=== PATIENT | female | born 1930 | race Caucasian/White ===

== ENCOUNTER 2016-05-19 06:13 | Inpatient (IN) | payer OTHER ==
[2016-05-15 11:03] LABS: Basophils # (auto) 0 uL; Basophils % (auto) 0.3 % (0.0-2.0); Eosinophils # (auto) 0.1 uL; Eosinophils % (auto) 1.1 % (0.0-7.0); Hematocrit 39.5 % (36.0-46.0); Lymphocytes # (auto) 2.2 uL; Lymphocytes % (auto) 18.3 % (10.0-50.0); Mean Corpuscular Hemoglobin 32.3 pg (28.0-32.0); Mean Corpuscular Hgb Conc. 32.9 g/dL (32.0-36.0); Mean Corpuscular Volume 98.2 fL (80.0-100.0); Mean Platelet Volume 7.1 fL (7.4-10.4); Monocytes # (auto) 0.9 uL; Monocytes % (auto) 7.7 % (0.0-12.0); Neutrophils # (auto) 8.7 uL; Neutrophils % (auto) 72.6 % (37.0-80.0); Platelet Count (auto) 383 10^3/uL (140-450)
[2016-05-15 11:07] LABS: Urine Bilirubin Negative (Negative); Urine Blood Negative /uL (Negative); Urine Color Yellow (Yellow); Urine Glucose Normal (Normal); Urine Hyaline Cast FEW /lpf (0 - 2); Urine Ketone Negative (Negative); Urine Mucus FEW (None Seen); Urine Nitrite Negative (Negative); Urine RBC <1 /hpf (0 - 4); Urine Squamous Epithelial Cell FEW /hpf (<5); Urine Urobilinogen Normal (Negative); Urine pH 5.5 (5.0-8.0)
[2016-05-15 11:22] LABS: INR 0.98 (0.9-1.15); Partial Thromboplastin Time 26.2 sec (22.64-33.71); Prothrombin Time 10.1 sec (9.37-12.3)
[2016-05-15 11:40] LABS: Albumin 4.1 g/dL (3.4-5.0); BUN/Creatinine Ratio 30.4; Bilirubin, Total 0.3 mg/dL (0.2-1.0); Calcium 9.7 mg/dL (8.5-10.1); Potassium 4.4 mmol/L (3.5-5.1); Total Protein 8.1 g/dL (6.4-8.2)
[~2016-05-19] VITALS: Ht 170.2 cm; Wt 92.8 kg
[~2016-05-19 06:13] MED LIST: ACET-1156 PO; AML5T PO; ASCO500T11 OR; ASPI81TA27 PO; B-COTAB59 OR; CALC600T4 PO; CHOL10006 PO; CRAN1TAB2 PO; FLAX1300 OR; GINK120C3 PO; GLUCTAB OR; LACTCAP35 OR; LEV50T PO; MELO-85 PO; MULT1TAB69 PO; OMEG100078 PO; OMEP20CA5 PO; OXYB15TA12 PO; POTATAB17 PO; SERT-160 PO; TRAM50TA2 PO
[2016-05-19] MEDS ORDERED: TETRACAINE 1% INJ 2 ML VIAL IJ ONE (06:40)
[2016-05-19] MEDS ORDERED: fentaNYL CITRATE 100 MCG/2 ML VL ONE ×2 (06:47→09:02)
[2016-05-19] MEDS ORDERED: MORPHINE SULF(PF) 0.5MG/ML 10ML VIAL ONE (06:47)
[2016-05-19] MEDS ORDERED: MIDAZOLAM HCL 1MG/1ML-2 ML VIAL ONE (06:47)
[2016-05-19] MEDS ORDERED: SODIUM CHLORIDE LOCK 20 ML ONE (06:49)
[2016-05-19] MEDS ORDERED: ePHEDrine SULFATE 50 MG/ML AMP ONE (06:49)
[2016-05-19] MEDS ORDERED: ONDANSETRON HCL 4 MG/2 ML VIAL ONE (06:49)
[2016-05-19] MEDS ORDERED: PROPOFOL 10 MG/ML 20 ML IV ONE ×2 (06:49→09:51)
[2016-05-19] MEDS ORDERED: BUPIVACAINE W/ EPINEPH 0.25% INJ 50ML MDV ONE (06:56)
[2016-05-19] MEDS ORDERED: BUPIVACAINE 0.25% INJ 50ML VIAL ONE (06:56)
[2016-05-19] MEDS ORDERED: cefTRIAXone SOD 1,000 MG VL ONE (06:58)
[2016-05-19] MEDS ORDERED: ceFAZolin 1GM/50ML D5W 100 ML IV ONE (07:07)
[2016-05-19 07:37] LABS: Basophils # (auto) 0 uL; Basophils % (auto) 0.2 % (0.0-2.0); Eosinophils # (auto) 0.1 uL; Eosinophils % (auto) 1.3 % (0.0-7.0); Hematocrit 37.9 % (36.0-46.0); Lymphocytes # (auto) 1.7 uL; Lymphocytes % (auto) 15.6 % (10.0-50.0); Mean Corpuscular Hemoglobin 31.2 pg (28.0-32.0); Mean Corpuscular Hgb Conc. 31.6 g/dL (32.0-36.0); Mean Corpuscular Volume 98.6 fL (80.0-100.0); Mean Platelet Volume 6.8 fL (7.4-10.4); Monocytes # (auto) 0.9 uL; Monocytes % (auto) 7.9 % (0.0-12.0); Neutrophils # (auto) 8.2 uL; Platelet Count (auto) 347 10^3/uL (140-450); Red Cell Distribution Width 13.1 % (11.6-16.0); White Blood Cell 10.9 10^3/uL (4.4-10.8)
[2016-05-19] MEDS ORDERED: SUCCINYLCHOLINE CHLORIDE 20 MG/ML 10ML VIAL IV ONE (07:43)
[2016-05-19] MEDS ORDERED: ROCURONIUM 10MG/ML 10ML VIAL IV ONE (07:43)
[2016-05-19 07:48] LABS: Urine Bilirubin Negative (Negative); Urine Blood Negative /uL (Negative); Urine Color Yellow (Yellow); Urine Glucose Normal (Normal); Urine Ketone Negative (Negative); Urine Nitrite Negative (Negative); Urine RBC 1 /hpf (0 - 4); Urine Squamous Epithelial Cell FEW /hpf (<5); Urine Urobilinogen Normal (Negative); Urine pH 6.5 (5.0-8.0)
[2016-05-19] MEDS ORDERED: ACETAMINOPHEN IV 100 ML IV ONE (09:18)
[2016-05-19] MEDS ORDERED: KETOROLAC TROMETH 30 MG/ML 1ML VIAL IV ONE (10:00)
[2016-05-19] MEDS ORDERED: PROMETHAZINE HCL 25 MG/ML 1ML IM ONE (10:00)
[2016-05-19] MEDS ORDERED: HYDROmorphone HCL 2 MG/ML VL IV PRN (10:00)
[2016-05-19] MEDS ORDERED: DOCUSATE SOD 100 MG CAP PO ONE (11:00)
[2016-05-19 12:44] VITALS: BP 130/54
[2016-05-19] MEDS: LACTATED RINGER'S 1,000 ML IV SCH (12:59)
[2016-05-19] MEDS: SODIUM CHLOR 0.9% PF (SALINE LOCK) 10ML VIAL IV SCH ×2 (13:00→22:21)
[2016-05-19] MEDS: ceFAZolin 1GM/50ML D5W 50 ML IV SCH ×2 (13:19→17:54)
[2016-05-19 13:55] VITALS: BP 130/54
[2016-05-19 17:49] VITALS: BP 134/62
[2016-05-19 22:00] VITALS: BP 147/71
[2016-05-19] MEDS: DOCUSATE SOD 100 MG CAP PO SCH (22:13)
[2016-05-19] MEDS: traMADol HCL 50 MG TAB PO PRN (23:18)
[2016-05-20] MEDS: ceFAZolin 1GM/50ML D5W 50 ML IV SCH (02:07)
[2016-05-20] MEDS: HYDROmorphone HCL 2 MG/ML VL IV PRN ×6 (02:19→20:33)
[2016-05-20 05:00] VITALS: BP 116/46
[2016-05-20 06:02] LABS: Basophils # (auto) 0 uL; Basophils % (auto) 0.1 % (0.0-2.0); Eosinophils # (auto) 0.1 uL; Eosinophils % (auto) 0.9 % (0.0-7.0); Hematocrit 30.3 % (36.0-46.0); Hemoglobin 9.6 g/dL (12.2-16.2); Lymphocytes # (auto) 1.2 uL; Lymphocytes % (auto) 8.1 % (10.0-50.0); Mean Corpuscular Hemoglobin 31.3 pg (28.0-32.0); Mean Corpuscular Hgb Conc. 31.6 g/dL (32.0-36.0); Mean Corpuscular Volume 98.9 fL (80.0-100.0); Mean Platelet Volume 6.8 fL (7.4-10.4); Monocytes # (auto) 1.2 uL; Monocytes % (auto) 8.4 % (0.0-12.0); Neutrophils # (auto) 11.6 uL; Neutrophils % (auto) 82.5 % (37.0-80.0); Platelet Count (auto) 268 10^3/uL (140-450); Red Cell Distribution Width 13.3 % (11.6-16.0); White Blood Cell 14.1 10^3/uL (4.4-10.8)
[2016-05-20] MEDS: SODIUM CHLOR 0.9% PF (SALINE LOCK) 10ML VIAL IV SCH ×3 (06:21→20:34)
[2016-05-20] MEDS: LEVOTHYROXINE SODIUM 25 MCG TAB PO SCH (06:22)
[2016-05-20] MEDS: LACTATED RINGER'S 1,000 ML IV SCH (06:23)
[2016-05-20 06:29] LABS: BUN/Creatinine Ratio 21.8; Calcium 8.4 mg/dL (8.5-10.1); Potassium 4.2 mmol/L (3.5-5.1)
[2016-05-20 07:53] LABS: Hematocrit 30.8 % (36.0-46.0); Hemoglobin 9.7 g/dL (12.2-16.2)
[2016-05-20 08:00] VITALS: BP 129/55
[2016-05-20] MEDS: ENOXAPARIN SOD 40 MG/0.4 ML SYRINGE SC SCH (09:30)
[2016-05-20] MEDS: DOCUSATE SOD 100 MG CAP PO SCH ×2 (09:30→22:31)
[2016-05-20] MEDS: SERTRALINE HCL 50 MG TAB PO SCH (09:31)
[2016-05-20] MEDS: cefTRIAXone 1GM/50ML D5W 50 ML IV SCH (09:31)
[2016-05-20] MEDS: amLODIPine BESYLATE 5 MG TAB PO SCH (09:31)
[2016-05-20 09:33] VITALS: BP 129/55
[2016-05-20] MEDS: ONDANSETRON HCL 4 MG/2 ML VIAL IV PRN ×3 (11:57→20:33)
[2016-05-20 13:00] VITALS: BP 130/55
[2016-05-20 17:00] VITALS: BP 158/83
[2016-05-20 22:00] VITALS: BP 141/55
[2016-05-21] MEDS: LACTATED RINGER'S 1,000 ML IV SCH (00:14)
[2016-05-21] MEDS: HYDROmorphone HCL 2 MG/ML VL IV PRN ×4 (01:22→21:48)
[2016-05-21] MEDS: ONDANSETRON HCL 4 MG/2 ML VIAL IV PRN ×4 (01:22→21:48)
[2016-05-21 05:00] VITALS: BP 156/59
[2016-05-21] MEDS: SODIUM CHLOR 0.9% PF (SALINE LOCK) 10ML VIAL IV SCH ×3 (06:33→21:48)
[2016-05-21] MEDS: LEVOTHYROXINE SODIUM 25 MCG TAB PO SCH (06:34)
[2016-05-21 07:24] LABS: Hematocrit 28.5 % (36.0-46.0); Hemoglobin 9.1 g/dL (12.2-16.2)
[2016-05-21 08:00] VITALS: BP 144/72
[2016-05-21] MEDS: cefTRIAXone 1GM/50ML D5W 50 ML IV SCH (08:55)
[2016-05-21 09:00] VITALS: BP 144/72
[2016-05-21] MEDS: ENOXAPARIN SOD 40 MG/0.4 ML SYRINGE SC SCH (10:51)
[2016-05-21] MEDS: amLODIPine BESYLATE 5 MG TAB PO SCH (10:52)
[2016-05-21] MEDS: SERTRALINE HCL 50 MG TAB PO SCH (10:52)
[2016-05-21] MEDS: DOCUSATE SOD 100 MG CAP PO SCH ×2 (10:53→21:48)
[2016-05-21 13:19] VITALS: BP 141/79
[2016-05-21 17:23] VITALS: BP 135/59
[2016-05-21 22:00] VITALS: BP 120/49
[2016-05-22 05:00] VITALS: BP 145/52
[2016-05-22 06:18] LABS: Basophils # (auto) 0 uL; Basophils % (auto) 0.1 % (0.0-2.0); Eosinophils # (auto) 0.1 uL; Eosinophils % (auto) 0.5 % (0.0-7.0); Hematocrit 28.6 % (36.0-46.0); Lymphocytes # (auto) 0.9 uL; Lymphocytes % (auto) 7.2 % (10.0-50.0); Mean Corpuscular Hemoglobin 31.6 pg (28.0-32.0); Mean Corpuscular Hgb Conc. 31.4 g/dL (32.0-36.0); Mean Corpuscular Volume 100.8 fL (80.0-100.0); Mean Platelet Volume 7.2 fL (7.4-10.4); Monocytes # (auto) 1.3 uL; Monocytes % (auto) 10.2 % (0.0-12.0); Neutrophils # (auto) 10.1 uL; Platelet Count (auto) 248 10^3/uL (140-450); Red Cell Distribution Width 12.8 % (11.6-16.0); White Blood Cell 12.3 10^3/uL (4.4-10.8)
[2016-05-22] MEDS: SODIUM CHLOR 0.9% PF (SALINE LOCK) 10ML VIAL IV SCH ×3 (06:28→21:56)
[2016-05-22] MEDS: LEVOTHYROXINE SODIUM 25 MCG TAB PO SCH (06:28)
[2016-05-22 06:34] LABS: Calcium 8.5 mg/dL (8.5-10.1); Potassium 3.9 mmol/L (3.5-5.1)
[2016-05-22 08:00] VITALS: BP 150/59
[2016-05-22 09:00] VITALS: BP 150/59
[2016-05-22] MEDS: cefTRIAXone 1GM/50ML D5W 50 ML IV SCH (10:00)
[2016-05-22] MEDS: amLODIPine BESYLATE 5 MG TAB PO SCH (10:01)
[2016-05-22] MEDS: DOCUSATE SOD 100 MG CAP PO SCH ×2 (10:01→21:56)
[2016-05-22] MEDS: HYDROmorphone HCL 2 MG/ML VL IV PRN ×2 (10:02→21:56)
[2016-05-22] MEDS: ENOXAPARIN SOD 40 MG/0.4 ML SYRINGE SC SCH (10:02)
[2016-05-22] MEDS: SERTRALINE HCL 50 MG TAB PO SCH (10:02)
[2016-05-22] MEDS ORDERED: FUROSEMIDE 20 MG/2 ML VIAL IV ONE (11:45)
[2016-05-22] MEDS ORDERED: POTASSIUM CHL 20 Meq TABLET PO ONE (11:45)
[2016-05-22 13:00] VITALS: BP 113/59
[2016-05-22 17:30] VITALS: BP 139/55
[2016-05-22 21:30] VITALS: BP 138/71
[2016-05-22] MEDS: ONDANSETRON HCL 4 MG/2 ML VIAL IV PRN (21:57)
[2016-05-23] VITALS (10 sets, daily range): BP systolic 111–146; BP diastolic 54–70
[2016-05-23] MEDS: SODIUM CHLOR 0.9% PF (SALINE LOCK) 10ML VIAL IV SCH ×2 (06:23→14:00)
[2016-05-23] MEDS: LEVOTHYROXINE SODIUM 25 MCG TAB PO SCH (06:41)
[2016-05-23 08:11] LABS: Hematocrit 26.6 % (36.0-46.0); Hemoglobin 8.5 g/dL (12.2-16.2)
[2016-05-23] MEDS: cefTRIAXone 1GM/50ML D5W 50 ML IV SCH (09:49)
[2016-05-23] MEDS: HYDROmorphone HCL 2 MG/ML VL IV PRN ×3 (09:58→19:50)
[2016-05-23] MEDS: ENOXAPARIN SOD 40 MG/0.4 ML SYRINGE SC SCH (09:59)
[2016-05-23] MEDS: SERTRALINE HCL 50 MG TAB PO SCH (10:00)
[2016-05-23] MEDS: DOCUSATE SOD 100 MG CAP PO SCH (10:00)
[2016-05-23] MEDS: amLODIPine BESYLATE 5 MG TAB PO SCH (10:01)
[2016-05-23] MEDS ORDERED: FUROSEMIDE 40 MG/4 ML VIAL IV ONE (10:45)
[2016-05-23] MEDS ORDERED: BISACODYL 5 MG EC TAB PO ONE (10:45)
[2016-05-24] VITALS (11 sets, daily range): BP systolic 118–144; BP diastolic 45–75
[2016-05-24] MEDS: SODIUM CHLOR 0.9% PF (SALINE LOCK) 10ML VIAL IV SCH ×4 (00:58→23:07)
[2016-05-24] MEDS: DOCUSATE SOD 100 MG CAP PO SCH ×3 (00:58→23:07)
[2016-05-24] MEDS: HYDROmorphone HCL 2 MG/ML VL IV PRN ×5 (03:37→22:53)
[2016-05-24 05:41] LABS: Basophils # (auto) 0 uL; Basophils % (auto) 0.1 % (0.0-2.0); Eosinophils # (auto) 0.3 uL; Hematocrit 33.6 % (36.0-46.0); Hemoglobin 10.7 g/dL (12.2-16.2); Lymphocytes # (auto) 1.1 uL; Lymphocytes % (auto) 12.7 % (10.0-50.0); Mean Corpuscular Hemoglobin 30.7 pg (28.0-32.0); Mean Corpuscular Hgb Conc. 31.9 g/dL (32.0-36.0); Mean Corpuscular Volume 96.3 fL (80.0-100.0); Mean Platelet Volume 6.8 fL (7.4-10.4); Monocytes # (auto) 1.1 uL; Monocytes % (auto) 12.4 % (0.0-12.0); Neutrophils # (auto) 6.5 uL; Neutrophils % (auto) 71.8 % (37.0-80.0); Platelet Count (auto) 294 10^3/uL (140-450); Red Cell Distribution Width 14.4 % (11.6-16.0)
[2016-05-24] MEDS: LEVOTHYROXINE SODIUM 25 MCG TAB PO SCH (06:35)
[2016-05-24] MEDS: traMADol HCL 50 MG TAB PO PRN (08:25)
[2016-05-24] MEDS: cefTRIAXone 1GM/50ML D5W 50 ML IV SCH (09:48)
[2016-05-24] MEDS: amLODIPine BESYLATE 5 MG TAB PO SCH (09:52)
[2016-05-24] MEDS: ENOXAPARIN SOD 40 MG/0.4 ML SYRINGE SC SCH (09:54)
[2016-05-24] MEDS: SERTRALINE HCL 50 MG TAB PO SCH (09:54)
[2016-05-25 05:30] VITALS: BP 142/56
[2016-05-25 06:06] LABS: Hematocrit 33.2 % (36.0-46.0); Hemoglobin 10.6 g/dL (12.2-16.2)
[2016-05-25 06:27] LABS: Potassium 3.8 mmol/L (3.5-5.1)
[2016-05-25 06:32] LABS: BUN/Creatinine Ratio 39.6; Magnesium 2.2 mg/dL (1.6-2.6)
[2016-05-25] MEDS: LEVOTHYROXINE SODIUM 25 MCG TAB PO SCH (06:34)
[2016-05-25] MEDS: SODIUM CHLOR 0.9% PF (SALINE LOCK) 10ML VIAL IV SCH ×3 (06:34→22:00)
[2016-05-25] MEDS: DOCUSATE SOD 100 MG CAP PO SCH ×2 (09:44→22:00)
[2016-05-25] MEDS: SERTRALINE HCL 50 MG TAB PO SCH (09:45)
[2016-05-25 09:49] VITALS: BP 158/64
[2016-05-25] MEDS: cefTRIAXone 1GM/50ML D5W 50 ML IV SCH (09:49)
[2016-05-25] MEDS: amLODIPine BESYLATE 5 MG TAB PO SCH (09:49)
[2016-05-25] MEDS: HYDROmorphone HCL 2 MG/ML VL IV PRN ×2 (09:49→22:00)
[2016-05-25] MEDS ORDERED: MAGNESIUM CITRATE SOLUTION 300 ML BTL PO ONE (10:15)
[2016-05-25] MEDS ORDERED: KETOROLAC TROMETH 30 MG/ML 1ML VIAL IV ONE (10:15)
[2016-05-25] MEDS: ENOXAPARIN SOD 40 MG/0.4 ML SYRINGE SC SCH (11:22)
[2016-05-25 13:00] VITALS: BP 109/54
[2016-05-25] MEDS ORDERED: methylPREDNISolone SOD SUCC 40 MG/ML VL IV ONE (14:15)
[2016-05-25 16:50] VITALS: BP 132/52
[2016-05-25 22:00] VITALS: BP 131/67
[2016-05-26] MEDS: HYDROmorphone HCL 2 MG/ML VL IV PRN ×2 (01:21→09:47)
[2016-05-26 05:00] VITALS: BP 147/65
[2016-05-26] MEDS: SODIUM CHLOR 0.9% PF (SALINE LOCK) 10ML VIAL IV SCH ×2 (07:19→14:30)
[2016-05-26] MEDS: LEVOTHYROXINE SODIUM 25 MCG TAB PO SCH (07:19)
[2016-05-26] MEDS: cefTRIAXone 1GM/50ML D5W 50 ML IV SCH (08:30)
[2016-05-26 09:00] VITALS: BP 163/79
[2016-05-26] MEDS: ENOXAPARIN SOD 40 MG/0.4 ML SYRINGE SC SCH (09:42)
[2016-05-26] MEDS: amLODIPine BESYLATE 5 MG TAB PO SCH (09:42)
[2016-05-26] MEDS: SERTRALINE HCL 50 MG TAB PO SCH (09:43)
[2016-05-26] MEDS: DOCUSATE SOD 100 MG CAP PO SCH (09:43)
[2016-05-26 13:00] VITALS: BP 153/57
[2016-05-26 13:51] VITALS: BP 147/65
[2016-05-26] MEDS: traMADol HCL 50 MG TAB PO PRN (14:33)
[2016-05-26 14:52] VITALS: BP 153/49
== END 2016-05-26 17:00 | disposition home health service (06) | DRG 469 ==
LOC: SUR 06:13 → CENTRAL 06:14
PROVIDERS: ADMIT Orthopaedic Surgery; ATTEND Internal Medicine
PROC: 0SRC0J9 Replacement of Right Knee Joint with Synthetic Substitute, Cemented, Open Approach (ICD-10-PCS; principal; 2016-05-19 07:53)
PROC: 30233N1 Transfusion of Nonautologous Red Blood Cells into Peripheral Vein, Percutaneous Approach (ICD-10-PCS; 2016-05-23)
PROC: 30233N1 Transfusion of Nonautologous Red Blood Cells into Peripheral Vein, Percutaneous Approach (ICD-10-PCS; 2016-05-24)
DX: M17.11 Unilateral primary osteoarthritis, right knee (principal); I50.31 Acute diastolic (congestive) heart failure; N39.0 Urinary tract infection, site not specified; M21.061 Valgus deformity, not elsewhere classified, right knee; I11.0 Hypertensive heart disease with heart failure; M70.41 Prepatellar bursitis, right knee; M41.9 Scoliosis, unspecified; F32.9 Major depressive disorder, single episode, unspecified; D64.9 Anemia, unspecified; E66.9 Obesity, unspecified; M06.9 Rheumatoid arthritis, unspecified; E78.5 Hyperlipidemia, unspecified; E03.9 Hypothyroidism, unspecified; Z90.710 Acquired absence of both cervix and uterus; Z90.49 Acquired absence of other specified parts of digestive tract; Z98.890 Other specified postprocedural states; Z88.5 Allergy status to narcotic agent; Z68.32 Body mass index [BMI] 32.0-32.9, adult; Z79.01 Long term (current) use of anticoagulants; Y93.89 Activity, other specified
CPT/HCPCS: 36415; 71010; 73562; 80048; 80053; 81001; 83735; 84443; 85014; 85018; 85025; 85610; 85730; 86850; 86900; 86901; 86920; 87086; 97001; 97110; 97116; 97530; J0131; J0330; J0690; J0696; J1885; J2250; J2405; J2704; J3490

== ENCOUNTER → 2017-04-16 | Outpatient (CLI) | payer OTHER ==
[~2017-04-16] MED LIST changes: -MELO-85 PO; +MELO1TAB73 PO; -OMEP20CA5 PO; +OMEP20CA74 PO
[2017-04-16 11:28] LABS: Basophils # (auto) 0 uL; Basophils % (auto) 0.4 % (0.0-2.0); Eosinophils # (auto) 0.1 uL; Hematocrit 32.1 % (36.0-46.0); Hemoglobin 10.3 g/dL (12.2-16.2); Lymphocytes % (auto) 9.8 % (10.0-50.0); Mean Corpuscular Hemoglobin 30.6 pg (28.0-32.0); Mean Corpuscular Hgb Conc. 32.1 g/dL (32.0-36.0); Mean Corpuscular Volume 95.1 fL (80.0-100.0); Monocytes # (auto) 0.7 uL; Monocytes % (auto) 7.4 % (0.0-12.0); Neutrophils % (auto) 81.4 % (37.0-80.0); Nucleated Red Blood Cells % 0.1 %; Platelet Count (auto) 451 10^3/uL (140-450); Red Blood Cells 3.37 10^6/uL (4.0-5.20); Red Cell Distribution Width 15.4 % (11.8-14.3); White Blood Cell 9.8 10^3/uL (4.4-10.8)
[2017-04-16 12:13] LABS: Albumin 2.9 g/dL (3.4-5.0); BUN/Creatinine Ratio 27.9; Bilirubin, Total 0.3 mg/dL (0.2-1.0); CRP High Sensitivity 5.35 mg/dL (< 0.3); Calcium 9.1 mg/dL (8.5-10.1); Potassium 4.1 mmol/L (3.5-5.1); Total Protein 7.1 g/dL (6.4-8.2)
== END | disposition home or self-care (01) ==
LOC: LAB 10:30
DX: I10 Essential (primary) hypertension (principal); D64.9 Anemia, unspecified; M81.0 Age-related osteoporosis without current pathological fracture; M62.81 Muscle weakness (generalized); E03.9 Hypothyroidism, unspecified; M70.04 Crepitant synovitis (acute) (chronic), hand
CPT/HCPCS: 36415; 80053; 84443; 85025; 85652; 86141

== ENCOUNTER 2017-08-25 19:51 | Inpatient (IN) | payer OTHER ==
[~2017-08-25] VITALS: Ht 165.1 cm; Wt 59.5 kg
[~2017-08-25 19:51] MED LIST changes: -ACET-1156 PO; +ALEN70TA2 PO; -ASCO500T11 OR; +ASPI-492 PO; -ASPI81TA27 PO; -B-COTAB59 OR; -CALC600T4 PO; -CHOL10006 PO; -CRAN1TAB2 PO; +DICL1GEL35 TOP; -FLAX1300 OR; +GAB100C PO; -GINK120C3 PO; -GLUCTAB OR; -LACTCAP35 OR; -LEV50T PO; +LEVO75TA50 PO; -MULT1TAB69 PO; -OMEG100078 PO; -OMEP20CA74 PO; -OXYB15TA12 PO; +OXYB5TAB61 PO; -POTATAB17 PO; +SULF500T8 PO; +TIZA4TAB9 PO
[2017-08-25 22:42] LABS: Basophils # (auto) 0.1 uL; Basophils % (auto) 1.2 % (0.0-2.0); Eosinophils # (auto) 0.2 uL; Eosinophils % (auto) 2.1 % (0.0-7.0); Hematocrit 33.6 % (36.0-46.0); Hemoglobin 10.9 g/dL (12.2-16.2); Lymphocytes # (auto) 1.1 uL; Lymphocytes % (auto) 15.9 % (10.0-50.0); Mean Corpuscular Hgb Conc. 32.5 g/dL (32.0-36.0); Mean Corpuscular Volume 98.4 fL (80.0-100.0); Monocytes # (auto) 0.6 uL; Monocytes % (auto) 8.7 % (0.0-12.0); Neutrophils # (auto) 5.2 uL; Neutrophils % (auto) 72.1 % (37.0-80.0); Nucleated Red Blood Cells % 0.1 %; Platelet Count (auto) 443 10^3/uL (140-450); Red Blood Cells 3.42 10^6/uL (4.0-5.20); Red Cell Distribution Width 15.2 % (11.8-14.3); White Blood Cell 7.2 10^3/uL (4.4-10.8)
[2017-08-25 22:50] LABS: INR 1.03 (0.9-1.15); Partial Thromboplastin Time 36.1 sec (22.64-33.71); Prothrombin Time 11.2 sec (9.37-12.3)
[2017-08-25 22:53] LABS: Alanine Aminotransferase 10 U/L (13-56); Albumin 3.2 g/dL (3.4-5.0); Anion Gap 11 (5-15); Aspartate Aminotransferase 20 U/L (15-37); BUN/Creatinine Ratio 22.6; Blood Urea Nitrogen 14 mg/dL (7-18); Calcium 8.5 mg/dL (8.5-10.1); Carbon Dioxide 21 mmol/L (21-32); Chloride 108 mmol/L (98-107); GFR African American 117 mL/min; GFR Non-African American 97 mL/min; Glucose 100 mg/dL (74-106); Magnesium 1.9 mg/dL (1.6-2.6); Potassium 3.8 mmol/L (3.5-5.1); Sodium 140 mmol/L (136-145)
[2017-08-25] MEDS ORDERED: ONDANSETRON ODT 4 MG TAB PO ONE (23:00)
[2017-08-25] MEDS ORDERED: SODIUM CHLORIDE 0.9% 1,000 ML IV ONE (23:00)
[2017-08-25 23:09] LABS: Alkaline Phosphatase 119 U/L (45-117); Bilirubin, Total 0.5 mg/dL (0.2-1.0); Total Protein 7.3 g/dL (6.4-8.2)
[2017-08-25 23:58] LABS: Urine Amorphous Crystal MANY /hpf (None Seen); Urine Bacteria FEW /hpf (None Seen); Urine Blood Negative /uL (Negative); Urine Specific Gravity 1.008 (1.001-1.035); Urine WBC 36 /hpf (0 - 5)
[2017-08-26] MEDS ORDERED: LEVOFLOXACIN 750MG 150 ML IV ONE
[2017-08-26] MEDS ORDERED: METOCLOPRAMIDE HCL 5MG/ml INJ 2ml VIAL IV ONE (03:30)
[2017-08-26] MEDS ORDERED: LORazepam 2MG/ML-1ML VIAL IV ONE (04:00)
[2017-08-26] MEDS ORDERED: LORazepam 2MG/ML-1ML VIAL ONE (04:02)
[2017-08-26] MEDS ORDERED: LORazepam 0.5 MG TAB PO ONE (04:15)
[2017-08-26] MEDS ORDERED: DOCUSATE SOD 100 MG CAP PO PRN (05:15)
[2017-08-26] MEDS ORDERED: NITROGLYCERIN 0.4 MG SL TAB SL PRN (05:15)
[2017-08-26] MEDS ORDERED: METOPROLOL TARTRATE 1MG/1ML-5ML VIAL IV ONE (05:15)
[2017-08-26] MEDS ORDERED: MORPHINE SULFATE 4 MG/ML SYR/VIAL IV PRN (05:15)
[2017-08-26] MEDS ORDERED: ALBUTEROL SULF 2.5 MG/0.5ML(0.5%) NEB SOLN NEB PRN (05:15)
[2017-08-26] MEDS ORDERED: guaiFENesin-DM 100/10mg/5ml SYR PO PRN (05:15)
[2017-08-26] MEDS: LEVOTHYROXINE SODIUM 25 MCG TAB PO SCH (06:49)
[2017-08-26] MEDS: SODIUM CHLORIDE 0.9% 1,000 ML IV SCH ×2 (08:03→19:28)
[2017-08-26] MEDS: FAMOTIDINE 20 MG TAB PO SCH ×2 (10:00→21:49)
[2017-08-26] MEDS: ENOXAPARIN SOD 40 MG/0.4 ML SYRINGE SC SCH (10:00)
[2017-08-26] MEDS: ASPirin 81 mg TAB PO SCH (10:00)
[2017-08-26] MEDS ORDERED: amLODIPine BESYLATE 5 MG TAB PO SCH (10:00)
[2017-08-26] MEDS: SERTRALINE HCL 50 MG TAB PO SCH (10:00)
[2017-08-26] MEDS ORDERED: OXYB15TA12 PO (10:28)
[2017-08-26] MEDS ORDERED: LABETALOL HCL 5 MG/ML ML 20ML VIAL IV ONE (11:05)
[2017-08-26] MEDS ORDERED: LABETALOL HCL 5 MG/ML ML 20ML VIAL IV PRN (11:15)
[2017-08-26 11:25] VITALS: BP 196/88
[2017-08-26] MEDS ORDERED: LACTULOSE 20Gm/30ML SOLN PO ONE (14:45)
[2017-08-26 17:00] VITALS: BP 150/78
[2017-08-26 21:40] VITALS: BP 162/81
[2017-08-26] MEDS: LACTULOSE 20Gm/30ML SOLN PO SCH (21:49)
[2017-08-26] MEDS: METOPROLOL TARTRATE 25 MG TAB PO SCH (21:49)
[2017-08-26] MEDS ORDERED: LEVOFLOXACIN 750MG 150 ML IV SCH (22:00)
[2017-08-27 05:11] VITALS: BP 158/87
[2017-08-27] MEDS: LACTULOSE 20Gm/30ML SOLN PO SCH ×2 (06:19→22:14)
[2017-08-27] MEDS: LEVOTHYROXINE SODIUM 25 MCG TAB PO SCH (06:19)
[2017-08-27 06:21] LABS: Basophils # (auto) 0.1 uL; Eosinophils # (auto) 0.3 uL; Eosinophils % (auto) 3.6 % (0.0-7.0); Hematocrit 35.2 % (36.0-46.0); Hemoglobin 11.7 g/dL (12.2-16.2); Lymphocytes # (auto) 1.2 uL; Lymphocytes % (auto) 16.8 % (10.0-50.0); Mean Corpuscular Hemoglobin 32.8 pg (28.0-32.0); Mean Corpuscular Hgb Conc. 33.2 g/dL (32.0-36.0); Mean Corpuscular Volume 98.7 fL (80.0-100.0); Monocytes # (auto) 0.7 uL; Monocytes % (auto) 10.4 % (0.0-12.0); Neutrophils # (auto) 4.8 uL; Neutrophils % (auto) 68.2 % (37.0-80.0); Nucleated Red Blood Cells % 0.1 %; Platelet Count (auto) 419 10^3/uL (140-450); Red Blood Cells 3.57 10^6/uL (4.0-5.20); Red Cell Distribution Width 15.6 % (11.8-14.3)
[2017-08-27 06:57] LABS: Albumin 2.8 g/dL (3.4-5.0); Calcium 8.7 mg/dL (8.5-10.1); Potassium 3.8 mmol/L (3.5-5.1)
[2017-08-27 06:59] LABS: BUN/Creatinine Ratio 13.5
[2017-08-27 07:01] LABS: Bilirubin, Total 0.6 mg/dL (0.2-1.0)
[2017-08-27 09:00] VITALS: BP 143/88
[2017-08-27] MEDS ORDERED: AMPICILLIN INJ 500 MG in SODIUM CHL 0.9% 50 ML IV ONE (10:15)
[2017-08-27] MEDS: SERTRALINE HCL 50 MG TAB PO SCH (10:43)
[2017-08-27] MEDS: METOPROLOL TARTRATE 25 MG TAB PO SCH ×2 (10:44→22:14)
[2017-08-27] MEDS: ASPirin 81 mg TAB PO SCH (10:44)
[2017-08-27] MEDS: amLODIPine BESYLATE 5 MG TAB PO SCH (10:45)
[2017-08-27] MEDS: FAMOTIDINE 20 MG TAB PO SCH ×2 (10:45→22:13)
[2017-08-27] MEDS: ENOXAPARIN SOD 40 MG/0.4 ML SYRINGE SC SCH (10:46)
[2017-08-27] MEDS: SODIUM CHLORIDE 0.9% 1,000 ML IV SCH (10:47)
[2017-08-27 13:00] VITALS: BP 144/76
[2017-08-27 17:00] VITALS: BP_SYST 139; BP_SYST 151; BP_DIAS 102; BP_DIAS 71
[2017-08-27] MEDS: AMPICILLIN INJ 500 MG in SODIUM CHL 0.9% 50 ML IV SCH (18:12)
[2017-08-27] MEDS: ONDANSETRON HCL 4 MG/2 ML VIAL IV PRN (21:48)
[2017-08-27 22:31] VITALS: BP 151/63
[2017-08-28] MEDS: AMPICILLIN INJ 500 MG in SODIUM CHL 0.9% 50 ML IV SCH ×5 (00:07→23:57)
[2017-08-28] MEDS: SODIUM CHLORIDE 0.9% 1,000 ML IV SCH (00:07)
[2017-08-28 05:20] VITALS: BP 141/69
[2017-08-28] MEDS: LEVOTHYROXINE SODIUM 25 MCG TAB PO SCH (06:47)
[2017-08-28] MEDS: cloNIDine HCL 0.1 MG TAB PO PRN (08:19)
[2017-08-28 09:00] VITALS: BP 189/79
[2017-08-28] MEDS: LACTULOSE 20Gm/30ML SOLN PO SCH ×2 (09:30→21:31)
[2017-08-28] MEDS: METOPROLOL TARTRATE 25 MG TAB PO SCH ×2 (09:35→21:31)
[2017-08-28] MEDS: LOSARTAN POTASSIUM 25 MG TAB PO SCH (09:37)
[2017-08-28] MEDS: ASPirin 81 mg TAB PO SCH (09:37)
[2017-08-28] MEDS: FAMOTIDINE 20 MG TAB PO SCH ×2 (09:38→21:30)
[2017-08-28] MEDS: amLODIPine BESYLATE 5 MG TAB PO SCH (09:38)
[2017-08-28] MEDS: ENOXAPARIN SOD 40 MG/0.4 ML SYRINGE SC SCH (09:39)
[2017-08-28] MEDS: SERTRALINE HCL 50 MG TAB PO SCH (09:39)
[2017-08-28] MEDS ORDERED: AMPICILLIN 500 MG CAP PO SCH (12:00)
[2017-08-28] MEDS: ONDANSETRON HCL 4 MG/2 ML VIAL IV PRN ×2 (12:49→19:41)
[2017-08-28 13:00] VITALS: BP 116/58
[2017-08-28 16:44] VITALS: BP 116/49
[2017-08-28] MEDS: ACETAMINOPHEN 325 MG TAB PO PRN (21:31)
[2017-08-28 21:58] VITALS: BP 129/69
[2017-08-29 05:11] VITALS: BP 141/56
[2017-08-29] MEDS: AMPICILLIN INJ 500 MG in SODIUM CHL 0.9% 50 ML IV SCH ×3 (05:33→21:25)
[2017-08-29] MEDS: LEVOTHYROXINE SODIUM 25 MCG TAB PO SCH (06:39)
[2017-08-29 09:00] VITALS: BP 151/72
[2017-08-29 09:20] VITALS: BP 189/79
[2017-08-29] MEDS: LACTULOSE 20Gm/30ML SOLN PO SCH ×2 (10:00→21:57)
[2017-08-29] MEDS: ASPirin 81 mg TAB PO SCH (10:19)
[2017-08-29] MEDS: ENOXAPARIN SOD 40 MG/0.4 ML SYRINGE SC SCH (10:19)
[2017-08-29] MEDS: FAMOTIDINE 20 MG TAB PO SCH ×2 (10:20→21:52)
[2017-08-29] MEDS: METOPROLOL TARTRATE 25 MG TAB PO SCH ×2 (10:20→21:53)
[2017-08-29] MEDS: SERTRALINE HCL 50 MG TAB PO SCH (10:21)
[2017-08-29] MEDS: LOSARTAN POTASSIUM 25 MG TAB PO SCH (10:22)
[2017-08-29] MEDS: amLODIPine BESYLATE 5 MG TAB PO SCH (10:22)
[2017-08-29] MEDS: ONDANSETRON HCL 4 MG/2 ML VIAL IV PRN ×2 (10:23→15:37)
[2017-08-29 12:48] VITALS: BP 141/65
[2017-08-29 17:00] VITALS: BP 135/67
[2017-08-29 22:00] VITALS: BP 147/71
[2017-08-30] MEDS: AMPICILLIN INJ 500 MG in SODIUM CHL 0.9% 50 ML IV SCH ×4 (01:09→17:59)
[2017-08-30 05:00] VITALS: BP 154/72
[2017-08-30] MEDS: LEVOTHYROXINE SODIUM 25 MCG TAB PO SCH (06:09)
[2017-08-30 06:55] LABS: Albumin 2.7 g/dL (3.4-5.0); Calcium 8.3 mg/dL (8.5-10.1); Potassium 3.7 mmol/L (3.5-5.1)
[2017-08-30 06:57] LABS: Bilirubin, Total 0.4 mg/dL (0.2-1.0); Total Protein 6.1 g/dL (6.4-8.2)
[2017-08-30 08:17] VITALS: BP 158/74
[2017-08-30] MEDS: ENOXAPARIN SOD 40 MG/0.4 ML SYRINGE SC SCH (09:58)
[2017-08-30] MEDS: FAMOTIDINE 20 MG TAB PO SCH (09:58)
[2017-08-30] MEDS: SERTRALINE HCL 50 MG TAB PO SCH (09:59)
[2017-08-30] MEDS: ASPirin 81 mg TAB PO SCH (09:59)
[2017-08-30] MEDS: METOPROLOL TARTRATE 25 MG TAB PO SCH ×2 (10:00→22:20)
[2017-08-30] MEDS: LOSARTAN POTASSIUM 25 MG TAB PO SCH (10:00)
[2017-08-30] MEDS: amLODIPine BESYLATE 5 MG TAB PO SCH (10:01)
[2017-08-30] MEDS: LACTULOSE 20Gm/30ML SOLN PO SCH ×2 (10:02→22:00)
[2017-08-30] MEDS: ACETAMINOPHEN 325 MG TAB PO PRN (11:33)
[2017-08-30 12:26] VITALS: BP 159/80
[2017-08-30] MEDS: ONDANSETRON HCL 4 MG/2 ML VIAL IV PRN ×2 (14:14→18:55)
[2017-08-30] MEDS ORDERED: PANTOPRAZOLE 40 MG/10 ML VIAL IV ONE (15:00)
[2017-08-30 16:33] VITALS: BP 125/56
[2017-08-30 20:00] VITALS: BP 150/65
[2017-08-30 21:00] VITALS: BP 150/65
[2017-08-31] MEDS: AMPICILLIN INJ 500 MG in SODIUM CHL 0.9% 50 ML IV SCH ×3 (00:33→12:43)
[2017-08-31 05:56] VITALS: BP 168/65
[2017-08-31] MEDS: cloNIDine HCL 0.1 MG TAB PO PRN (06:18)
[2017-08-31] MEDS: LEVOTHYROXINE SODIUM 25 MCG TAB PO SCH (06:18)
[2017-08-31 07:42] VITALS: BP 151/60
[2017-08-31] MEDS: LACTULOSE 20Gm/30ML SOLN PO SCH ×2 (09:36→21:34)
[2017-08-31] MEDS: ASPirin 81 mg TAB PO SCH (09:36)
[2017-08-31] MEDS: ENOXAPARIN SOD 40 MG/0.4 ML SYRINGE SC SCH (09:36)
[2017-08-31] MEDS: PANTOPRAZOLE 40 MG/10 ML VIAL IV SCH (09:36)
[2017-08-31] MEDS: SERTRALINE HCL 50 MG TAB PO SCH (09:37)
[2017-08-31] MEDS: amLODIPine BESYLATE 5 MG TAB PO SCH (09:38)
[2017-08-31] MEDS: METOPROLOL TARTRATE 25 MG TAB PO SCH ×2 (09:38→21:34)
[2017-08-31] MEDS: LOSARTAN POTASSIUM 25 MG TAB PO SCH (09:38)
[2017-08-31] MEDS: ACETAMINOPHEN 325 MG TAB PO PRN ×2 (10:23→18:04)
[2017-08-31 11:47] VITALS: BP 103/46
[2017-08-31 16:22] VITALS: BP 113/41
[2017-08-31] MEDS: SODIUM CHL 0.9% IV SCH (18:02)
[2017-08-31] MEDS: AMPICILLIN IV SCH (18:02)
[2017-08-31 20:00] VITALS: BP 114/51
[2017-08-31 21:47] VITALS: BP 114/51
[2017-09-01] MEDS: ACETAMINOPHEN 325 MG TAB PO PRN ×2 (00:29→14:28)
[2017-09-01] MEDS: AMPICILLIN IV SCH ×5 (00:40→23:38)
[2017-09-01] MEDS: SODIUM CHL 0.9% IV SCH ×5 (00:40→23:38)
[2017-09-01 05:42] VITALS: BP 152/64
[2017-09-01] MEDS: LEVOTHYROXINE SODIUM 25 MCG TAB PO SCH (07:03)
[2017-09-01 07:44] VITALS: BP 150/81
[2017-09-01 08:55] VITALS: BP 150/81
[2017-09-01] MEDS: SERTRALINE HCL 50 MG TAB PO SCH (09:16)
[2017-09-01] MEDS: ASPirin 81 mg TAB PO SCH (09:16)
[2017-09-01] MEDS: METOPROLOL TARTRATE 25 MG TAB PO SCH ×2 (09:16→22:07)
[2017-09-01] MEDS: LOSARTAN POTASSIUM 25 MG TAB PO SCH (09:16)
[2017-09-01] MEDS: ENOXAPARIN SOD 40 MG/0.4 ML SYRINGE SC SCH (09:17)
[2017-09-01] MEDS: PANTOPRAZOLE 40 MG/10 ML VIAL IV SCH (09:17)
[2017-09-01] MEDS: amLODIPine BESYLATE 5 MG TAB PO SCH (09:17)
[2017-09-01] MEDS: LACTULOSE 20Gm/30ML SOLN PO SCH ×2 (09:18→22:06)
[2017-09-01 11:55] VITALS: BP 119/55
[2017-09-01 16:23] VITALS: BP 158/58
[2017-09-01 22:00] VITALS: BP 134/64
[2017-09-01] MEDS: PANTOPRAZOLE 40 MG TAB PO SCH (22:07)
[2017-09-02] MEDS: ACETAMINOPHEN 325 MG TAB PO PRN ×2 (02:21→16:59)
[2017-09-02] MEDS: cloNIDine HCL 0.1 MG TAB PO PRN (02:52)
[2017-09-02 05:00] VITALS: BP 162/69
[2017-09-02] MEDS: AMPICILLIN IV SCH ×2 (06:08→12:18)
[2017-09-02] MEDS: SODIUM CHL 0.9% IV SCH ×2 (06:08→12:18)
[2017-09-02] MEDS: LEVOTHYROXINE SODIUM 25 MCG TAB PO SCH (06:33)
[2017-09-02 06:34] VITALS: BP 150/62
[2017-09-02 08:00] VITALS: BP 140/67
[2017-09-02] MEDS ORDERED: ACET1CAP14 PO (09:42)
[2017-09-02] MEDS: LACTULOSE 20Gm/30ML SOLN PO SCH ×2 (10:00→22:00)
[2017-09-02] MEDS: PANTOPRAZOLE 40 MG TAB PO SCH ×2 (10:11→22:09)
[2017-09-02] MEDS: amLODIPine BESYLATE 5 MG TAB PO SCH (10:11)
[2017-09-02] MEDS: LOSARTAN POTASSIUM 25 MG TAB PO SCH (10:12)
[2017-09-02] MEDS: METOPROLOL TARTRATE 25 MG TAB PO SCH ×2 (10:13→22:09)
[2017-09-02] MEDS: ASPirin 81 mg TAB PO SCH (10:13)
[2017-09-02] MEDS: SERTRALINE HCL 50 MG TAB PO SCH (10:13)
[2017-09-02] MEDS: ENOXAPARIN SOD 40 MG/0.4 ML SYRINGE SC SCH (10:14)
[2017-09-02 13:00] VITALS: BP 137/61
[2017-09-02 14:40] LABS: BUN/Creatinine Ratio 30.4; Calcium 8.2 mg/dL (8.5-10.1); Potassium 3.6 mmol/L (3.5-5.1)
[2017-09-02 16:57] VITALS: BP 107/46
[2017-09-02] MEDS: AMPICILLIN INJ 500 MG in SODIUM CHL 0.9% 50 ML IV SCH ×2 (18:20→23:36)
[2017-09-02 23:02] VITALS: BP 131/58
[2017-09-03 05:14] VITALS: BP 152/70
[2017-09-03] MEDS: LEVOTHYROXINE SODIUM 25 MCG TAB PO SCH (06:25)
[2017-09-03] MEDS: AMPICILLIN INJ 500 MG in SODIUM CHL 0.9% 50 ML IV SCH ×3 (06:25→17:53)
[2017-09-03 09:00] VITALS: BP 158/67
[2017-09-03] MEDS: LACTULOSE 20Gm/30ML SOLN PO SCH ×2 (10:00→22:17)
[2017-09-03] MEDS: PANTOPRAZOLE 40 MG TAB PO SCH ×2 (10:02→22:18)
[2017-09-03] MEDS: ASPirin 81 mg TAB PO SCH (10:02)
[2017-09-03] MEDS: ENOXAPARIN SOD 40 MG/0.4 ML SYRINGE SC SCH (10:02)
[2017-09-03] MEDS: METOPROLOL TARTRATE 25 MG TAB PO SCH ×2 (10:03→22:18)
[2017-09-03] MEDS: SERTRALINE HCL 50 MG TAB PO SCH (10:03)
[2017-09-03] MEDS: amLODIPine BESYLATE 5 MG TAB PO SCH (10:05)
[2017-09-03] MEDS: LOSARTAN POTASSIUM 25 MG TAB PO SCH (10:07)
[2017-09-03 13:00] VITALS: BP 120/64
[2017-09-03 16:54] VITALS: BP 110/52
[2017-09-03] MEDS ORDERED: MORPHINE SULFATE 8mg/ml INJ SDV IV PRN (18:15)
[2017-09-03 21:54] VITALS: BP 133/64
[2017-09-04] MEDS: AMPICILLIN INJ 500 MG in SODIUM CHL 0.9% 50 ML IV SCH ×5 (01:13→23:39)
[2017-09-04 04:30] VITALS: BP 142/90
[2017-09-04] MEDS: LEVOTHYROXINE SODIUM 25 MCG TAB PO SCH (06:38)
[2017-09-04 09:00] VITALS: BP 163/75
[2017-09-04] MEDS: LACTULOSE 20Gm/30ML SOLN PO SCH ×3 (10:00→22:00)
[2017-09-04] MEDS: SERTRALINE HCL 50 MG TAB PO SCH (10:27)
[2017-09-04] MEDS: ASPirin 81 mg TAB PO SCH (10:27)
[2017-09-04] MEDS: HYDROcodone-ACET 5/325MG TAB PO PRN ×2 (10:28→22:24)
[2017-09-04] MEDS: PANTOPRAZOLE 40 MG TAB PO SCH ×2 (10:28→21:55)
[2017-09-04] MEDS: LOSARTAN POTASSIUM 25 MG TAB PO SCH (10:29)
[2017-09-04] MEDS: ENOXAPARIN SOD 40 MG/0.4 ML SYRINGE SC SCH (10:30)
[2017-09-04] MEDS: METOPROLOL TARTRATE 25 MG TAB PO SCH ×2 (10:30→21:55)
[2017-09-04] MEDS: amLODIPine BESYLATE 5 MG TAB PO SCH (10:30)
[2017-09-04 12:53] VITALS: BP 116/72
[2017-09-04 17:00] VITALS: BP 120/53
[2017-09-04 22:00] VITALS: BP 136/61
[2017-09-05 05:00] VITALS: BP 157/72
[2017-09-05] MEDS: AMPICILLIN INJ 500 MG in SODIUM CHL 0.9% 50 ML IV SCH ×4 (05:32→23:30)
[2017-09-05] MEDS: LEVOTHYROXINE SODIUM 25 MCG TAB PO SCH (06:04)
[2017-09-05] MEDS: ONDANSETRON HCL 4 MG/2 ML VIAL IV PRN ×4 (07:27→21:50)
[2017-09-05 09:15] VITALS: BP 132/56
[2017-09-05] MEDS: LACTULOSE 20Gm/30ML SOLN PO SCH ×3 (10:00→21:51)
[2017-09-05] MEDS: SERTRALINE HCL 50 MG TAB PO SCH (10:16)
[2017-09-05] MEDS: PANTOPRAZOLE 40 MG TAB PO SCH ×2 (10:16→21:52)
[2017-09-05] MEDS: ENOXAPARIN SOD 40 MG/0.4 ML SYRINGE SC SCH (10:16)
[2017-09-05] MEDS: LOSARTAN POTASSIUM 25 MG TAB PO SCH (10:17)
[2017-09-05] MEDS: ASPirin 81 mg TAB PO SCH (10:17)
[2017-09-05] MEDS: METOPROLOL TARTRATE 25 MG TAB PO SCH ×2 (10:18→21:51)
[2017-09-05] MEDS: amLODIPine BESYLATE 5 MG TAB PO SCH (10:18)
[2017-09-05 12:07] VITALS: BP 115/57
[2017-09-05 17:00] VITALS: BP 132/67
[2017-09-05] MEDS: HYDROcodone-ACET 5/325MG TAB PO PRN (19:53)
[2017-09-05 22:00] VITALS: BP 131/81
[2017-09-06 05:00] VITALS: BP 148/59
[2017-09-06] MEDS: AMPICILLIN INJ 500 MG in SODIUM CHL 0.9% 50 ML IV SCH ×2 (05:38→13:28)
[2017-09-06] MEDS: LEVOTHYROXINE SODIUM 25 MCG TAB PO SCH (06:00)
[2017-09-06 08:00] VITALS: BP 139/63
[2017-09-06] MEDS: ONDANSETRON HCL 4 MG/2 ML VIAL IV PRN (08:06)
[2017-09-06] MEDS: HYDROcodone-ACET 5/325MG TAB PO PRN (08:06)
[2017-09-06 09:00] VITALS: BP 139/63
[2017-09-06] MEDS ORDERED: guaiFENesin-DM 100/10mg/5ml SYR PO PRN (09:30)
[2017-09-06] MEDS ORDERED: HYDROcodone-ACET 5/325MG TAB PO PRN (09:30)
[2017-09-06] MEDS: LACTULOSE 20Gm/30ML SOLN PO SCH (10:00)
[2017-09-06] MEDS: METOPROLOL TARTRATE 25 MG TAB PO SCH ×2 (10:35→22:11)
[2017-09-06] MEDS: ASPirin 81 mg TAB PO SCH (10:36)
[2017-09-06] MEDS: LOSARTAN POTASSIUM 25 MG TAB PO SCH (10:38)
[2017-09-06] MEDS: SERTRALINE HCL 50 MG TAB PO SCH (10:38)
[2017-09-06] MEDS: ENOXAPARIN SOD 40 MG/0.4 ML SYRINGE SC SCH (10:39)
[2017-09-06] MEDS: amLODIPine BESYLATE 5 MG TAB PO SCH (10:39)
[2017-09-06] MEDS: PANTOPRAZOLE 40 MG TAB PO SCH ×2 (10:39→22:10)
[2017-09-06 13:00] VITALS: BP 140/61
[2017-09-06] MEDS: ACETAMINOPHEN 325 MG TAB PO PRN (16:10)
[2017-09-06 17:00] VITALS: BP 116/72
[2017-09-06 20:00] VITALS: BP 110/43
[2017-09-06] MEDS: DOCUSATE SOD 100 MG CAP PO SCH (22:11)
[2017-09-07] VITALS (7 sets, daily range): BP systolic 115–150; BP diastolic 41–62
[2017-09-07] MEDS: LEVOTHYROXINE SODIUM 25 MCG TAB PO SCH (06:47)
[2017-09-07] MEDS: ACETAMINOPHEN 325 MG TAB PO PRN (10:15)
[2017-09-07] MEDS: ASPirin 81 mg TAB PO SCH (10:56)
[2017-09-07] MEDS: SERTRALINE HCL 50 MG TAB PO SCH (10:56)
[2017-09-07] MEDS: PANTOPRAZOLE 40 MG TAB PO SCH ×2 (10:56→22:12)
[2017-09-07] MEDS: ENOXAPARIN SOD 40 MG/0.4 ML SYRINGE SC SCH (10:56)
[2017-09-07] MEDS: amLODIPine BESYLATE 5 MG TAB PO SCH (11:00)
[2017-09-07] MEDS: METOPROLOL TARTRATE 25 MG TAB PO SCH ×2 (11:00→12:00)
[2017-09-07] MEDS: LOSARTAN POTASSIUM 25 MG TAB PO SCH (11:01)
[2017-09-07] MEDS: SIMETHICONE 80 MG CHEWABLE TABLET PO SCH ×3 (15:09→22:12)
[2017-09-07] MEDS: DOCUSATE SOD 100 MG CAP PO SCH (22:12)
[2017-09-08 05:00] VITALS: BP 161/74
[2017-09-08 06:07] LABS: Basophils # (auto) 0 uL; Basophils % (auto) 0.5 % (0.0-2.0); Eosinophils # (auto) 0.5 uL; Eosinophils % (auto) 8.1 % (0.0-7.0); Hematocrit 31.8 % (36.0-46.0); Hemoglobin 10.7 g/dL (12.2-16.2); Lymphocytes # (auto) 1.7 uL; Lymphocytes % (auto) 26.1 % (10.0-50.0); Mean Corpuscular Hemoglobin 32.4 pg (28.0-32.0); Mean Corpuscular Hgb Conc. 33.5 g/dL (32.0-36.0); Mean Corpuscular Volume 96.9 fL (80.0-100.0); Monocytes # (auto) 0.7 uL; Monocytes % (auto) 10.2 % (0.0-12.0); Neutrophils # (auto) 3.6 uL; Neutrophils % (auto) 55.1 % (37.0-80.0); Platelet Count (auto) 310 10^3/uL (140-450); Red Blood Cells 3.29 10^6/uL (4.0-5.20); White Blood Cell 6.5 10^3/uL (4.4-10.8)
[2017-09-08 06:08] LABS: Albumin 2.8 g/dL (3.4-5.0); Calcium 8.9 mg/dL (8.5-10.1); Potassium 3.9 mmol/L (3.5-5.1)
[2017-09-08 06:12] LABS: BUN/Creatinine Ratio 30.6
[2017-09-08 06:14] LABS: Bilirubin, Total 0.3 mg/dL (0.2-1.0); Total Protein 6.5 g/dL (6.4-8.2)
[2017-09-08] MEDS: SIMETHICONE 80 MG CHEWABLE TABLET PO SCH ×4 (06:50→21:57)
[2017-09-08] MEDS: LEVOTHYROXINE SODIUM 25 MCG TAB PO SCH (06:50)
[2017-09-08 08:00] VITALS: BP 133/61
[2017-09-08 09:13] VITALS: BP 133/61
[2017-09-08] MEDS: ACETAMINOPHEN 325 MG TAB PO PRN ×2 (09:44→14:05)
[2017-09-08] MEDS: ASPirin 81 mg TAB PO SCH (10:29)
[2017-09-08] MEDS: GABAPENTIN 100 MG CAP PO SCH (10:29)
[2017-09-08] MEDS: SERTRALINE HCL 50 MG TAB PO SCH (10:29)
[2017-09-08] MEDS: PANTOPRAZOLE 40 MG TAB PO SCH ×2 (10:29→21:57)
[2017-09-08] MEDS: METOPROLOL TARTRATE 25 MG TAB PO SCH ×2 (10:30→21:58)
[2017-09-08] MEDS: amLODIPine BESYLATE 5 MG TAB PO SCH (10:31)
[2017-09-08] MEDS: LOSARTAN POTASSIUM 25 MG TAB PO SCH (10:31)
[2017-09-08] MEDS: ENOXAPARIN SOD 40 MG/0.4 ML SYRINGE SC SCH (10:32)
[2017-09-08 13:22] VITALS: BP 125/62
[2017-09-08 17:01] VITALS: BP 121/56
[2017-09-08 21:45] VITALS: BP 113/57
[2017-09-08] MEDS: DOCUSATE SOD 100 MG CAP PO SCH (21:57)
[2017-09-08] MEDS ORDERED: GABAPENTIN 100 MG CAP PO SCH (22:00)
[2017-09-09 05:02] VITALS: BP 131/58
[2017-09-09] MEDS: SIMETHICONE 80 MG CHEWABLE TABLET PO SCH ×2 (06:25→12:13)
[2017-09-09] MEDS: LEVOTHYROXINE SODIUM 25 MCG TAB PO SCH (06:25)
[2017-09-09 09:00] VITALS: BP 149/67
[2017-09-09] MEDS: ENOXAPARIN SOD 40 MG/0.4 ML SYRINGE SC SCH (10:01)
[2017-09-09] MEDS: ASPirin 81 mg TAB PO SCH (10:01)
[2017-09-09] MEDS: GABAPENTIN 100 MG CAP PO SCH (10:02)
[2017-09-09] MEDS: LOSARTAN POTASSIUM 25 MG TAB PO SCH (10:02)
[2017-09-09] MEDS: METOPROLOL TARTRATE 25 MG TAB PO SCH (10:02)
[2017-09-09] MEDS: amLODIPine BESYLATE 5 MG TAB PO SCH (10:03)
[2017-09-09] MEDS: SERTRALINE HCL 50 MG TAB PO SCH (10:03)
[2017-09-09] MEDS: PANTOPRAZOLE 40 MG TAB PO SCH (10:03)
[2017-09-09 13:00] VITALS: BP 104/61
== END 2017-09-09 16:03 | disposition home health service (06) | DRG 193 ==
LOC: ER 19:51 → EDBD 19:51 → TELE 19:52 → TELE-CENTR 08-26 09:55 → CENTRAL 08-27 09:54
PROVIDERS: ADMIT Nurse Practitioner; ATTEND Internal Medicine
DX: J18.1 Lobar pneumonia, unspecified organism (principal); S72.011A Unspecified intracapsular fracture of right femur, initial encounter for closed fracture; I48.0 Paroxysmal atrial fibrillation; I11.0 Hypertensive heart disease with heart failure; I50.9 Heart failure, unspecified; N39.0 Urinary tract infection, site not specified; W18.39XA Other fall on same level, initial encounter; K76.89 Other specified diseases of liver; E03.9 Hypothyroidism, unspecified; K21.9 Gastro-esophageal reflux disease without esophagitis; K57.90 Diverticulosis of intestine, part unspecified, without perforation or abscess without bleeding; K59.00 Constipation, unspecified; M75.100 Unspecified rotator cuff tear or rupture of unspecified shoulder, not specified as traumatic; N32.81 Overactive bladder; Z82.49 Family history of ischemic heart disease and other diseases of the circulatory system; Z90.710 Acquired absence of both cervix and uterus; M19.90 Unspecified osteoarthritis, unspecified site; Z91.011 Allergy to milk products; Z88.8 Allergy status to other drugs, medicaments and biological substances; Z91.018 Allergy to other foods; Z79.899 Other long term (current) drug therapy; Y93.89 Activity, other specified; Y92.89 Other specified places as the place of occurrence of the external cause; D63.8 Anemia in other chronic diseases classified elsewhere; M21.851 Other specified acquired deformities of right thigh; Z79.82 Long term (current) use of aspirin
CPT/HCPCS: 36415; 51702; 71045; 73700; 74176; 80048; 80053; 81001; 83735; 83880; 84443; 84484; 85025; 85610; 85730; 87040; 87081; 87086; 87088; 87186; 93005; 93306; 94761; 96361; 96365; 96375; 97110; 97116; 97163; 97530; C9113; J1956; J2405; Q0162

== ENCOUNTER 2017-09-27 20:29 | Inpatient (IN) | payer OTHER ==
[~2017-09-27] VITALS: Ht 162.6 cm; Wt 62.5 kg
[~2017-09-27 20:29] MED LIST changes: +ACET1CAP14 PO; -AML5T PO; -ASPI-492 PO; -DICL1GEL35 TOP; -MELO1TAB73 PO; +OXYB15TA12 PO; -OXYB5TAB61 PO; -TIZA4TAB9 PO
[2017-09-27] MEDS ORDERED: DILTIAZEM HCL 25 MG/5 ML VIAL IV ONE ×2 (21:15→22:30)
[2017-09-27 21:24] LABS: Basophils # (auto) 0 uL; Basophils % (auto) 0.3 % (0.0-2.0); Eosinophils # (auto) 0.1 uL; Eosinophils % (auto) 1.2 % (0.0-7.0); Hematocrit 37.9 % (36.0-46.0); Hemoglobin 12.4 g/dL (12.2-16.2); Lymphocytes # (auto) 1.3 uL; Lymphocytes % (auto) 13.4 % (10.0-50.0); Mean Corpuscular Hemoglobin 31.8 pg (28.0-32.0); Mean Corpuscular Hgb Conc. 32.6 g/dL (32.0-36.0); Mean Corpuscular Volume 97.4 fL (80.0-100.0); Monocytes # (auto) 1.2 uL; Monocytes % (auto) 11.8 % (0.0-12.0); Neutrophils # (auto) 7.4 uL; Neutrophils % (auto) 73.3 % (37.0-80.0); Platelet Count (auto) 304 10^3/uL (140-450); Red Blood Cells 3.89 10^6/uL (4.0-5.20); Red Cell Distribution Width 15.3 % (11.8-14.3); White Blood Cell 10.1 10^3/uL (4.4-10.8)
[2017-09-27 21:51] LABS: Alanine Aminotransferase 10 U/L (13-56); Albumin 3.4 g/dL (3.4-5.0); Alkaline Phosphatase 104 U/L (45-117); Anion Gap 13 (5-15); Aspartate Aminotransferase 16 U/L (15-37); BUN/Creatinine Ratio 32.8; Bilirubin, Total 0.7 mg/dL (0.2-1.0); Blood Urea Nitrogen 21 mg/dL (7-18); Carbon Dioxide 19 mmol/L (21-32); Chloride 105 mmol/L (98-107); GFR African American 113 mL/min; GFR Non-African American 93 mL/min; Glucose 127 mg/dL (74-106); Magnesium 2.2 mg/dL (1.6-2.6); Potassium 3.7 mmol/L (3.5-5.1); Sodium 137 mmol/L (136-145); Total Protein 7.6 g/dL (6.4-8.2)
[2017-09-27 21:52] LABS: INR 0.99 (0.9-1.15); Partial Thromboplastin Time 34.8 sec (23.78-33.04); Prothrombin Time 10.6 sec (9.27-12.13)
[2017-09-27] MEDS ORDERED: ACETAMINOPHEN 325 MG TAB PO ONE (22:30)
[2017-09-27] MEDS ORDERED: cefTRIAXone SOD 1,000 MG VL IM ONE (23:15)
[2017-09-27] MEDS ORDERED: fentaNYL CITRATE 100 MCG/2 ML VL IV ONE (23:15)
[2017-09-27] MEDS ORDERED: methylPREDNISolone SOD SUCC 125 MG/2 ML VL IV ONE (23:15)
[2017-09-27] MEDS ORDERED: ALBUTEROL SULF 2.5 MG/0.5ML(0.5%) NEB SOLN NEB ONE (23:15)
[2017-09-27] MEDS ORDERED: IPRATROPIUM BROM 0.5 MG/2.5ML INH SOL NEB ONE (23:15)
[2017-09-27 23:55] LABS: Urine Bacteria MANY /hpf (None Seen); Urine Blood Negative /uL (Negative); Urine Mucus MODERATE (None Seen); Urine Specific Gravity 1.022 (1.001-1.035); Urine WBC 96 /hpf (0 - 5)
[2017-09-28] MEDS: MAGNESIUM SULFATE 1GM/100ML 100 ML IV SCH ×2 (00:41→01:48)
[2017-09-28] MEDS ORDERED: NITROGLYCERIN 0.4 MG SL TAB SL PRN (02:00)
[2017-09-28] MEDS ORDERED: traMADol HCL 50 MG TAB PO PRN (02:00)
[2017-09-28] MEDS ORDERED: ACETAMINOPHEN 500 MG TAB PO PRN (02:00)
[2017-09-28] MEDS ORDERED: FUROSEMIDE 20 MG/2 ML VIAL IV ONE (04:00)
[2017-09-28] MEDS ORDERED: GABA100C9 PO (04:01)
[2017-09-28] MEDS ORDERED: MELO1TAB73 PO (04:01)
[2017-09-28] MEDS ORDERED: OMEP20TA PO (04:01)
[2017-09-28] MEDS ORDERED: TIZA4CAP PO (04:01)
[2017-09-28 05:00] VITALS: BP 134/77
[2017-09-28] MEDS: LEVOTHYROXINE SODIUM 25 MCG TAB PO SCH (06:01)
[2017-09-28 08:22] LABS: Basophils # (auto) 0.1 uL; Basophils % (auto) 1.6 % (0.0-2.0); Eosinophils # (auto) 0 uL; Hematocrit 36.6 % (36.0-46.0); Hemoglobin 11.9 g/dL (12.2-16.2); Lymphocytes # (auto) 0.4 uL; Lymphocytes % (auto) 5.3 % (10.0-50.0); Mean Corpuscular Hemoglobin 31.7 pg (28.0-32.0); Mean Corpuscular Hgb Conc. 32.6 g/dL (32.0-36.0); Monocytes # (auto) 0.1 uL; Monocytes % (auto) 1.9 % (0.0-12.0); Neutrophils # (auto) 7.1 uL; Neutrophils % (auto) 91.2 % (37.0-80.0); Nucleated Red Blood Cells % 0.1 %; Platelet Count (auto) 274 10^3/uL (140-450); Red Blood Cells 3.77 10^6/uL (4.0-5.20); Red Cell Distribution Width 15.3 % (11.8-14.3); White Blood Cell 7.8 10^3/uL (4.4-10.8)
[2017-09-28 08:41] LABS: BUN/Creatinine Ratio 33.3; Calcium 9.1 mg/dL (8.5-10.1); Potassium 3.9 mmol/L (3.5-5.1)
[2017-09-28 09:00] VITALS: BP 149/76
[2017-09-28] MEDS: GABAPENTIN 100 MG CAP PO SCH ×2 (10:52→18:21)
[2017-09-28] MEDS: ASPirin 325 MG TAB PO SCH (10:53)
[2017-09-28] MEDS: SERTRALINE HCL 50 MG TAB PO SCH (10:53)
[2017-09-28 12:55] VITALS: BP 151/82
[2017-09-28 17:08] VITALS: BP 133/70
[2017-09-28 22:00] VITALS: BP 134/63
[2017-09-28] MEDS ORDERED: NITROFURANTOIN (MONO) 100 mg CAP PO SCH (22:00)
[2017-09-29] MEDS ORDERED: cefTRIAXone 1GM/10ml IVPUSH 10 ML IV SCH
[2017-09-29 05:00] VITALS: BP 174/68
[2017-09-29] MEDS: LEVOTHYROXINE SODIUM 25 MCG TAB PO SCH (07:01)
[2017-09-29] MEDS ORDERED: METOPROLOL TARTRATE 1MG/1ML-5ML VIAL IV ONE (08:45)
[2017-09-29] MEDS ORDERED: DIGOXIN (250MCG/ML) 2 ML AMPULE IV ONE ×2 (08:45→14:00)
[2017-09-29 09:00] VITALS: BP 136/82
[2017-09-29] MEDS: ASPirin 325 MG TAB PO SCH (10:00)
[2017-09-29] MEDS ORDERED: PANTOPRAZOLE 40 MG/10 ML VIAL IV ONE (11:45)
[2017-09-29 12:00] VITALS: BP 151/81
[2017-09-29] MEDS: AMIODARONE HCL 200 MG TAB PO SCH ×2 (12:43→23:32)
[2017-09-29] MEDS: GABAPENTIN 100 MG CAP PO SCH ×2 (12:43→18:14)
[2017-09-29] MEDS: SERTRALINE HCL 50 MG TAB PO SCH (12:44)
[2017-09-29] MEDS: ONDANSETRON HCL 4 MG/2 ML VIAL IV PRN ×2 (12:56→18:27)
[2017-09-29] MEDS ORDERED: cefTRIAXone 1GM/10ml IVPUSH 10 ML IV ONE (15:00)
[2017-09-29 17:00] VITALS: BP 148/87
[2017-09-29 20:00] VITALS: BP 136/82
[2017-09-29 22:00] VITALS: BP 154/74
[2017-09-30 05:41] VITALS: BP 160/84
[2017-09-30] MEDS: LEVOTHYROXINE SODIUM 25 MCG TAB PO SCH (07:00)
[2017-09-30 09:00] VITALS: BP 140/73
[2017-09-30] MEDS: cefTRIAXone 1GM/10ml IVPUSH 10 ML IV SCH (09:04)
[2017-09-30] MEDS: ONDANSETRON HCL 4 MG/2 ML VIAL IV PRN (09:04)
[2017-09-30] MEDS: GABAPENTIN 100 MG CAP PO SCH ×2 (09:05→17:31)
[2017-09-30] MEDS: ASPirin 325 MG TAB PO SCH (09:05)
[2017-09-30] MEDS: AMIODARONE HCL 200 MG TAB PO SCH ×2 (09:05→22:00)
[2017-09-30] MEDS: SERTRALINE HCL 50 MG TAB PO SCH (09:05)
[2017-09-30] MEDS: PANTOPRAZOLE 40 MG TAB PO SCH (10:00)
[2017-09-30] MEDS ORDERED: PANTOPRAZOLE 40 MG/10 ML VIAL IV SCH (10:00)
[2017-09-30] MEDS: METOPROLOL SUCCINATE XL 50 MG TAB PO SCH (10:49)
[2017-09-30 13:00] VITALS: BP 162/74
[2017-09-30 17:00] VITALS: BP 135/67
[2017-09-30 22:00] VITALS: BP 139/72
[2017-10-01 05:00] VITALS: BP 164/72
[2017-10-01] MEDS: LEVOTHYROXINE SODIUM 25 MCG TAB PO SCH (07:00)
[2017-10-01 09:00] VITALS: BP 160/69
[2017-10-01] MEDS: ASPirin 325 MG TAB PO SCH (09:24)
[2017-10-01] MEDS: cefTRIAXone 1GM/10ml IVPUSH 10 ML IV SCH (09:24)
[2017-10-01] MEDS: GABAPENTIN 100 MG CAP PO SCH (09:25)
[2017-10-01] MEDS: PANTOPRAZOLE 40 MG TAB PO SCH (09:25)
[2017-10-01] MEDS: SERTRALINE HCL 50 MG TAB PO SCH (09:25)
[2017-10-01] MEDS: AMIODARONE HCL 200 MG TAB PO SCH (09:25)
[2017-10-01] MEDS: METOPROLOL SUCCINATE XL 50 MG TAB PO SCH (09:26)
[2017-10-01] MEDS ORDERED: ASPI-111 PO (09:53)
[2017-10-01] MEDS ORDERED: PANT40T PO (09:53)
[2017-10-01] MEDS ORDERED: METO50TA7 PO (09:53)
[2017-10-01] MEDS ORDERED: AMI200T PO (09:53)
[2017-10-01] MEDS ORDERED: NITR-48 PO (09:54)
[2017-10-01 13:28] VITALS: BP 160/58
== END 2017-10-01 13:45 | disposition hospice, home (50) | DRG 308 ==
LOC: ER 20:29 → TELE 20:30 → TELE-WESTW 09-28 03:20
PROVIDERS: ADMIT Nurse Practitioner Family; ATTEND Internal Medicine
DX: I48.1 Persistent atrial fibrillation (principal); I50.31 Acute diastolic (congestive) heart failure; N39.0 Urinary tract infection, site not specified; D68.69 Other thrombophilia; Z96.653 Presence of artificial knee joint, bilateral; Z96.642 Presence of left artificial hip joint; B96.1 Klebsiella pneumoniae [K. pneumoniae] as the cause of diseases classified elsewhere; M19.90 Unspecified osteoarthritis, unspecified site; Z51.5 Encounter for palliative care; I11.0 Hypertensive heart disease with heart failure; K21.9 Gastro-esophageal reflux disease without esophagitis; I48.0 Paroxysmal atrial fibrillation; F41.9 Anxiety disorder, unspecified; E03.9 Hypothyroidism, unspecified; Z82.49 Family history of ischemic heart disease and other diseases of the circulatory system; S72.011G Unspecified intracapsular fracture of right femur, subsequent encounter for closed fracture with delayed healing; Z88.4 Allergy status to anesthetic agent; Z91.012 Allergy to eggs; Z91.011 Allergy to milk products; Z88.5 Allergy status to narcotic agent; Z91.018 Allergy to other foods; Z90.49 Acquired absence of other specified parts of digestive tract; Z90.710 Acquired absence of both cervix and uterus; Y92.89 Other specified places as the place of occurrence of the external cause; Z87.01 Personal history of pneumonia (recurrent); Z79.899 Other long term (current) drug therapy; Z79.83 Long term (current) use of bisphosphonates; Z91.81 History of falling
CPT/HCPCS: 36415; 36600; 71045; 80048; 80053; 81001; 82805; 83735; 83880; 84132; 84443; 84484; 85025; 85610; 85730; 87081; 87086; 87088; 87186; 93005; 94640; 96365; 96372; 96375; 99291; C9113; J0696; J2405